=== PATIENT | female | born 1940 | race Caucasian/White ===

== ENCOUNTER 2018-03-06 14:47 | Inpatient (IN) | payer OTHER, MEDICARE ==
[~2018-03-06] VITALS: Ht 157.5 cm; Wt 61.9 kg
[~2018-03-06 14:47] MED LIST: ALLO100T PO; AMLO5TAB3 PO; ASPI81TA28 PO; ATEN-175 PO; ATOR-24 PO; CEPH500C2 PO; DSP25 PO; HYDR25TA4 PO; LEVO112T4 PO; LISI10TA PO; PANT40TA PO; REPA2TAB12 PO; ROPI1TAB PO; SERT50TA PO; SITA25TA PO; SULF800T23 PO
[2018-03-06 17:44] VITALS: O2SAT 95; BMI 24.8
[2018-03-06 19:55] VITALS: BP 171/77; PULSE 100; TEMP 36.8; O2SAT 97
--- NOTE | 2018-03-06 21:36 | History and Physical ---
History & Physical Date & Time of Service: Mar 06, 2018 at 20:54 Chief Complaint: Acute Renal Failure, Osteomyelitis Primary Care Physician: Anne Stevenson D.O. History of Present Illness Source: patient The patient is a 77 year old female with a past medical history of HTN, OA, CAD (history of CABG in ) who is being transferred from [facility] after a renal biopsy performed on 03/05. The patient was recently an inpatient at [facility] from 02/19-03/04 with multiple illnesses including Acute Renal Failure, Osteomyelitis of the Right 2nd Phalynx, Pneumonia, and Atrial Fibrillation. The patient was initially seen at [facility] on 02/15 for the osteomyelitis that grew cultures positive for MRSA, and while admitted at [facility] developed the pneumonia and renal failure requiring transfer to [facility]. The patient appears to have been successfully treated for the osteomyelitis as there was no appearance of infection on the most recent MRI at [facility] on 02/23. As per the last Orthopaedic hospital note the patient was provided with the option of suppressive antibiotic therapy or amputation and the patient was leaning towards amputating the digit. Prior to her recent renal injury the patient was known to have CKD with a baseline creatinine of 1.1-1.8, and developed apparent HAO in the setting of her infection at the hospital. There was concern that her renal injury was acute tubular necrosis in the setting of antibiotic use including Vancomycin and Bactrim. The recommendation for Nephrology was that the patient have Dialysis 3x weekly, and last received Dialysis at [facility] on 03/05. The patient was transferred to [facility] for a renal biopsy, and while there the procedure was complicated by a perinephric hematoma. The patient was found to be hemodynamically stable 24 hours after the procedure and transferred to [facility]. The patient also developed new onset Afib and has been treated with Amiodarone and Metoprolol, and as per discharge from [facility] they recommend holding anticoagulation for 1 week due to the perinephric hematoma and until H/H remains stable. At this time the patient denies any acute complaints including fever, chills, sweats, shortness of breath, back pain, finger pain, or any other acute complaints Past Medical/Surgical History Medical Problems: (1) HAO (acute kidney injury) (2) Cellulitis of hand (3) Multifocal pneumonia (4) Osteomyelitis of finger of right hand Social History Smoking Status: Former Smoker Drug Use: none Marital Status: Housing status: lives with significant other Occupational Status: disabled Allergies Coded Allergies: No Known Allergies (Unverified , 02/20/18) Home Medications Scheduled Allopurinol (Zyloprim), 1 TAB PO DAILY Amlodipine (Norvasc), 5 MG PO DAILY Aspirin (Aspirin Ec), 81 MG PO DAILY Atenolol (Tenormin), 100 MG PO DAILY Atorvastatin (Lipitor), 40 MG PO DAILY Cephalexin Monohydrate (Keflex), 500 MG PO QID Desipramine HCl (Desipramine HCl), PO HS Hydrochlorothiazide (Hctz), 1 TAB PO DAILY Levothyroxine Sodium (Levothyroxine Sodium), 1 TAB PO DAILY Lisinopril (Prinivil), 10 MG PO DAILY Pantoprazole (Protonix), 40 MG PO BID Repaglinide (Prandin), 2 MG PO AC Ropinirole (Requip), 1 MG PO HS Sertraline (Zoloft), 50 MG PO DAILY Sitagliptin (Januvia), 25 MG PO DAILY Sulfa/Trimethoprim (Bactrim Ds 800MG/160MG), 1 TAB PO BID Review of Systems Constitutional: No fever, No chills, No sweats, No weight loss, No fatigue Respiratory: No cough, No shortness of breath Cardiovascular: No chest pain, No palpitations Abdomen: No pain, No nausea, No vomiting, No diarrhea, No constipation Neurologic: + numbness/tingling, No memory loss Physical Exam Vital Signs Date Time Temp Pulse Resp B/P (MAP) Pulse Ox O2 Delivery O2 Flow Rate FiO2 03/06/18 19:55 36.8 100 16 171/77 (108) 97 Room Air 03/06/18 17:44 95 Room Air General Appearance: WD/WN, no apparent distress Head: normocephalic, atraumatic Eyes: normal inspection, sclerae normal Neck: supple, no carotid bruits, trachea midline Respiratory/Chest: chest non-tender, lungs clear, normal breath sounds, + pertinent finding (Permcath placement C/D/I) Cardiovascular: no gallop, no murmur, + irregularly irregular Abdomen/GI: normal bowel sounds, non tender, soft Extremities/Musculoskelatal: no calf tenderness, no pedal edema, + pertinent finding (Right 2nd Phalynx - no visible discharge, bone visible at region of PIP joint, surrounding necrotic and erythematous discharge, no bleeding, nontender to palption, ) Neurologic/Psych: alert, normal reflexes, oriented x 3 Impression Assessment and Plan The patient is a 77 year old female with a past medical history of HTN, OA, CAD (history of CABG in ) who is being transferred from [facility] after a renal biopsy performed on 03/05 Acute Renal Failure - Possibly in the setting of ATN 2/2 IV Antibiotics or Staph related autoimmune kidney injury - Kidney Biopsy pending from [facility] - Consult Nephrology - Hemodialysis 3x/ week --> Last HD on 02/03 at [facility] - Creatinine 2.86 (Baseline 1.1-1.8) - Continue Prednisone 40mg PO Daily - Continue Cholecalciferol 1000 Int Units daily - Daily CBC, BMP - Admit Telemetry Perinephric Hematoma - Daily CBC - Hold Anticoagulation at this time Atrial Fibrillation - Continue Amiodarone 200mg PO Daily and Metoprolol XL 25mg PO Daily - Hold Anticoagulation at this time due to hematoma - EKG - Admit telemetry Right 2nd Finger Osteomyelitis - Orthopaedic Surgery Consult - Aquacel dressing - NPO after midnight anticipating possible amputation tomorrow - As per ID from previous admission Keflex x 14 days --> MSSA + Wound culture, Blood Cultures Negative DM - Sliding Scale Insulin with BSG AC and HS - Continue home Januvia and Prandin - Diabetic Diet HTN - Multiple conflicting medications between Cardiology notes, Discharge Summary, and Note from [facility] Discharged patient on Amlodipine 10mg PO Daily and Toprol Xl 25mg - Will continue medications from transfer for time being Parkinson's Disease - Continue home Ropinirole Hypothyroidism - Continue home Synthroid 112 mcg HLD - Continue home Atorvastatin 40mg Depression - Continue home Sertraline DVT - SCDs Code Status - Full Resuscitation Resident Physician Supervision Note: I was present with Dr. Cat during the history and exam. I discussed the case with the resident and agree with the findings and plan as documented in the note. Any exceptions or clarifications are listed here: 77 y/o F Hx HTN, OA, Parkinson, hypothyroidism, CAD, osteomyelitis, acute renal failure leading to dialysis during a recent hospitalization, PAF, recent PNM. The patient's sojourn began at [facility] on 02/15 for the osteomyelitis that grew cultures positive for MRSA. While admitted at [facility] she developed pneumonia and renal failure requiring transfer to [facility]. She was subsequently transferred to [facility] and stablized. Today she returns to [facility] for comletion of treatment and possible partial amputation of her R 2nd digit owing to osteomyelitis. It is noted that she suffered a perinephric hemorrhage after a renal biopsy at [facility]. Her Hb is low on arrival without evidence of active bleeding. OE Lethargic, elderly F - AAO S1,2 R CTA NT, ND Dialysis cath in chest wall without induration Minimal edema P: We will transfuse this pt pending ortho eval as she may need a procedure and has exhibited a precipitous decline in her Hb over the past week She requires dialysis TIW and nephrology will be contacted Cont Norvasc and Toprol Cont Synthroid Cont Lipitor Documented By: Loki Villalobos Advanced Directives Existing Living Will: Yes Existing Power of Front Desk Agent: Yes Resuscitation Status Full Code VTE Prophylaxis Will order VTE Prophylaxis: Yes Reason for no VTE drug order: Contraindicated Resident Tracking Resident Involvement: Resident Care Provided Care Provided: Adult Hospital Medicine
[2018-03-06 22:21] LABS: HEMATOCRIT 23.1 % (37-47); HEMOGLOBIN 7.6 g/dL (12.0-16.0); MEAN CELL VOLUME 93.1 fL (80-100); MEAN CORPUSCULAR HEMOGLOBIN 30.6 pg (25-34); MEAN CORPUSCULAR HGB CONC 32.9 g/dl (32-36); MEAN PLATELET VOLUME 10.5 fL (7.4-10.4); PLATELET COUNT 311 K/uL (130-400); RED CELL DISTRIBUTION WIDTH CV 21.1 % (11.5-14.5); RED CELL DISTRIBUTION WIDTH SD 69.3 fL (36.4-46.3); WHITE BLOOD COUNT 13.56 K/uL (4.8-10.8)
[2018-03-06 22:22] LABS: INR 1.2 (0.9-1.1)
[2018-03-06 22:29] LABS: CALCIUM 7.8 mg/dl (8.5-10.1); CREATININE 2.86 mg/dl (0.60-1.20); POTASSIUM 4.5 mmol/L (3.5-5.1)
[2018-03-06] MEDS ORDERED: GLUCAGON FOR INJ 1 MG VIAL IM PRN (22:30)
[2018-03-06] MEDS ORDERED: CARBOHYDRATES FOR HYPOGLYCEMIA PO PRN (22:30)
[2018-03-06] MEDS ORDERED: GLUCOSE 10 TABS/TUBE PO PRN (22:30)
[2018-03-06] MEDS ORDERED: GLUCOSE 40% GEL 15 GM TUBE PO PRN (22:30)
[2018-03-06] MEDS: INSULIN ASPART 100 UNITS/ML 3 ML PEN SC SCH (22:33)
[2018-03-06 22:42] LABS: IG# 0.03 K/uL (0.00-0.02); LYMPH % 6.1 %; LYMPH ABS # 0.83 K/uL (1.2-3.4); MONO % 4.1 %; MONO ABS # 0.55 K/uL (0.11-0.59); NEUT % 89.6 %; NEUT ABS # 12.15 K/uL (1.4-6.5)
[2018-03-06] MEDS: CEPHALEXIN MONOHYDRATE 500 MG CAP PO SCH (23:16)
[2018-03-06] MEDS: ROPINIROLE HCL 1 MG TAB PO SCH (23:17)
[2018-03-06 23:50] VITALS: BP 167/75; PULSE 97; TEMP 36.7; O2SAT 97
[2018-03-07] VITALS (28 sets, daily range): BP systolic 102–203; BP diastolic 46–83; PULSE 76–100; TEMP 36.5–37; O2SAT 93–100; Ht 157.5 cm; Wt 61.9 kg
[2018-03-07 04:22] LABS: HEMATOCRIT 24.6 % (37-47); HEMOGLOBIN 8.1 g/dL (12.0-16.0)
[2018-03-07] MEDS: LEVOTHYROXINE 112 MCG TAB PO SCH (05:38)
[2018-03-07] MEDS: REPAGLINIDE 1 MG TAB PO SCH ×4 (05:38→16:16)
[2018-03-07] MEDS: DEXTROSE 50% 50 ML SYR IV PRN ×2 (06:08→12:38)
[2018-03-07] MEDS: INSULIN ASPART 100 UNITS/ML 3 ML PEN SC SCH ×4 (06:13→21:24)
[2018-03-07] MEDS: PANTOprazole SOD 40 MG TAB PO SCH ×2 (07:45→21:22)
[2018-03-07] MEDS: ATORVASTATIN 40 MG TAB PO SCH (07:45)
[2018-03-07] MEDS: SITAGLIPTIN 25 MG TAB PO SCH (07:46)
[2018-03-07] MEDS: AMIODARONE 200 MG TAB PO SCH (07:46)
[2018-03-07] MEDS: CHOLECALCIFEROL 1000 INTER.UNIT TAB PO SCH (07:46)
[2018-03-07] MEDS: SERTRALINE HCL 50 MG TAB PO SCH (07:46)
[2018-03-07] MEDS: AMLODIPINE BESYLATE 5 MG TAB PO SCH (07:47)
[2018-03-07] MEDS: CEPHALEXIN MONOHYDRATE 500 MG CAP PO SCH ×2 (07:48→13:00)
[2018-03-07 08:17] LABS: HEMATOCRIT 30.4 % (37-47); HEMOGLOBIN 9.9 g/dL (12.0-16.0)
--- NOTE | 2018-03-07 08:47 | Clinical Documentation Query ---
CLINICAL DOCUMENTATION QUERY Dr. BRIAN, In your clinical opinion is this patient being managed for: ( ) Acute blood loss anemia ( x ) Not Agree ( ) Other explanation of clinical findings (No explanation is considered a No Response) ( ) Unable to determine ( ) Need to Discuss (Phone CDS or qliq) (No discussion is considered a No Response) The medical record reflects the following clinical findings, treatment, and risk factors. Clinical Indicators: 77 yo female returning from [facility] [place] a renal biopsy. Arrived with a low Hgb of 7.6. Reportedly had Perinephric Hematoma post biopsy at [facility]. Treatment: hold anticoagulation, daily CBC, transfuse 2 U PRBC Risk Factors: perinephric hematoma Please clarify and document your clinical opinion in the progress notes and discharge summary. Terms such as "probable", "suspected", "likely", "questionable", "possible", or "still to be ruled out" are acceptable. IF IN AGREEMENT, YOU MUST DOCUMENT ABOVE DIAGNOSTIC STATEMENT IN DAILY PROGRESS NOTES AND DISCHARGE SUMMARY. This document is not part of the patient's record. Thank You, Coco Aquino RN [phone]
--- NOTE | 2018-03-07 08:47 | Orthopedic Progress Note ---
Orthopedic Progress Note Date of Service Mar 07, 2018. Subjective Additional Notes: 77 y/o female with open wound, exposed bone involving right index finger DIP joint. No pain presently but does have pain at times. She was transferred back here to [facility] from [place] yesterday after renal biopsy procedure. She has also developed a. fib, and has received blood transfusion. Objective Date Time Temp Pulse Resp B/P (MAP) Pulse Ox O2 Delivery O2 Flow Rate FiO2 03/07/18 07:44 78 173/68 (103) 100 Room Air 03/07/18 06:40 37.0 83 18 190/76 99 03/07/18 05:40 37.0 86 18 186/78 98 03/07/18 05:13 36.8 91 18 166/76 (106) 98 Room Air 03/07/18 05:10 83 16 182/71 99 03/07/18 04:40 84 18 182/71 99 03/07/18 04:25 36.7 81 20 177/83 99 03/07/18 04:00 Room Air 03/07/18 00:00 Room Air 03/06/18 23:50 36.7 97 18 167/75 (105) 97 Room Air 03/06/18 19:55 36.8 100 16 171/77 (108) 97 Room Air 03/06/18 17:44 95 Room Air Laboratory Results 24 Hours: Test 03/06/18 21:47 03/07/18 04:08 03/07/18 08:00 White Blood Count 13.56 K/uL Red Blood Count 2.48 M/uL Hemoglobin 7.6 g/dL 8.1 g/dL 9.9 g/dL Hematocrit 23.1 % 24.6 % 30.4 % Mean Corpuscular Volume 93.1 fL Mean Corpuscular Hemoglobin 30.6 pg Mean Corpuscular Hemoglobin Concent 32.9 g/dl Platelet Count 311 K/uL Mean Platelet Volume 10.5 fL Neutrophils (%) (Auto) 89.6 % Lymphocytes (%) (Auto) 6.1 % Monocytes (%) (Auto) 4.1 % Eosinophils (%) (Auto) 0.0 % Basophils (%) (Auto) 0.0 % Neutrophils # (Auto) 12.15 K/uL Lymphocytes # (Auto) 0.83 K/uL Monocytes # (Auto) 0.55 K/uL Eosinophils # (Auto) 0.00 K/uL Basophils # (Auto) 0.00 K/uL Prothromb Time International Ratio 1.2 Prothrombin Time 12.3 SECONDS Additional Notes: She's alert, oriented. NAD. Right index finger open wound with exposed bone, necrosis. No active drainage.No redness or swelling extending up the the finger proximally. Assessment & Plan Assessment: Right index finger open wound, infection, with underlying advanced djd of DIP joint. Plan: She is npo. We will plan on taking her to the operating room today for amputation involving the right index finger. Procedure was explained to the patient and consent obtained.
[2018-03-07] MEDS ORDERED: AMLODIPINE BESYLATE 5 MG TAB PO SCH (09:00)
--- NOTE | 2018-03-07 10:12 | Nephrology Consultation ---
Nephrology Consultation Date & Providers Date of Consultation: Mar 07, 2018. Primary Care Provider: Anne Stevenson D.O. Referring Provider: Reason for Consultation HAO History of Present Illness Mrs. Adelita Vila is a 77 year-old female ho was recently transferred from [facility] to [facility] for a renal biopsy. The procedure was complicated by a perinephric hematoma. After 24 hours of observation, the patient was found to be stable and discharged to return to [facility] where amputation of the finger will be coordinated by orthopedics. Biopsy results are pending. The patient was initially admitted to [facility] as a transfer from [facility] on February 19. The patient's medical history is significant for HTN, OA, ASCVD ( CABG '00) and CKD w/ baseline creatinine 1.1 - 1.8. She presented to [facility] in January 2018 with soft tissue infection / osteomyelitis of the DIP joint R index finger. Cultures from the joint aspirate grew MSSA. Blood cultures negative. Initial treatment included Bactrim and Keflex. The patient was admitted and started on vancomycin and cefepime. HAO developed in setting of infection. Renal ultrasound documented symmetric bilateral cortical atrophy ( 8cm kidneys) but no obstruction. Renal duplex did not demonstrate significant renovascular disease. The patient developed new multifocal airspace disease/ pneumonia. She was transferred to [facility] with worsening kidney function and respiratory status with need for dialysis. Tunneled dialysis catheter was placed and patient was started on HD on February 21. She has been tolerating dialysis well. Urine microscopy revealed hematuria and pyuria. ESR >90. Serologic testing is notable for +MER, low C3 and equivocal serum immunofixation and UPEP. Hospital course was complicated by new atrial fibrillation. The patient has been converted to NSR with amiodarone. Anticoagulation held due to perinephric hematoma. Past Medical/Surgical History Medical: CKD III Hypertension Atrial fibrillation Coronary artery disease Osteoarthritis Surgical: TDC (02/21/18) Percutaneous kidney biopsy (03/04/18) Debridement of finger and aspiration of joint, January 2018 Allergies Coded Allergies: No Known Allergies (Unverified , 02/20/18) Inpatient Medications Current Inpatient Medications Medications (Trade) Dose Ordered Sig/Frank Route Start Time Stop Time Status Last Admin Dose Admin Acetaminophen (Tylenol Tab) 650 mg Q4H PRN PO 03/06/18 21:45 04/05/18 21:44 Atorvastatin Calcium (Lipitor Tab) 40 mg DAILY PO 03/07/18 09:00 04/06/18 08:59 03/07/18 07:45 40 MG Levothyroxine Sodium (Synthroid Tab) 112 mcg DAILYBB PO 03/07/18 06:00 04/06/18 05:59 03/07/18 05:38 112 MCG Pantoprazole Sodium (Protonix Tab) 40 mg BID PO 03/07/18 09:00 04/06/18 08:59 03/07/18 07:45 40 MG Repaglinide (Prandin Tab) 2 mg AC PO 03/07/18 07:00 04/06/18 06:59 03/07/18 05:38 2 MG Ropinirole HCl (Requip Tab) 1 mg HS PO 03/06/18 23:00 04/05/18 22:59 03/06/18 23:17 1 MG Sertraline HCl (Zoloft Tab) 50 mg DAILY PO 03/07/18 09:00 04/06/18 08:59 03/07/18 07:46 50 MG Sitagliptin Phosphate (Januvia Tab) 25 mg DAILY PO 03/07/18 09:00 04/06/18 08:59 03/07/18 07:46 25 MG Amiodarone HCl (Cordarone Tab) 200 mg QAM PO 03/07/18 09:00 04/06/18 08:59 03/07/18 07:46 200 MG Cephalexin Monohydrate (Keflex Cap) 500 mg QID PO 03/06/18 23:00 04/17/18 22:59 03/07/18 07:48 500 MG Amlodipine Besylate (Norvasc Tab) 10 mg DAILY PO 03/07/18 09:00 04/06/18 08:59 03/07/18 07:47 10 MG Prednisone (PredniSONE TAB) 40 mg DAILY PO 03/07/18 09:00 04/06/18 08:59 03/07/18 07:47 40 MG Cholecalciferol (Vitamin D Tab) 1,000 inter.unit QAM PO 03/07/18 09:00 04/06/18 08:59 03/07/18 07:46 1,000 INTER.UNIT Insulin Aspart (novoLOG ASPART) SLIDING SCALE G... ACHS IN 03/06/18 23:00 04/05/18 22:59 Glucose (Glucose 40% Gel) 15-30 GRAMS 15 GRAMS... UD PRN PO 03/06/18 22:30 04/05/18 22:29 Glucose (Glucose Chew Tab) 4-8 Tablets 4 Tabl... UD PRN PO 03/06/18 22:30 04/05/18 22:29 Dextrose (Dextrose 50% 50ML Syringe) 25-50ML 25ML FOR ... UD PRN IV 03/06/18 22:30 04/05/18 22:29 03/07/18 06:08 25 ML Glucagon (Glucagon Inj) 1 mg UD PRN IM 03/06/18 22:30 04/05/18 22:29 Carbohydrates (Carbohydrates For Hypoglycemia) 15-30 GRAMS 15 grams if BSG 54-69... UD PRN PO 03/06/18 22:30 04/05/18 22:29 Social History Smoking Status: Former Smoker Drug Use: none Marital Status: Housing Status: lives with significant other Occupation: disabled Review of Systems A complete review of systems was performed. Pertinent positives are noted above. All other systems are negative. Physical Exam Date Time Temp Pulse Resp B/P (MAP) Pulse Ox O2 Delivery O2 Flow Rate FiO2 03/07/18 08:00 Room Air 03/07/18 07:44 78 173/68 (103) 100 Room Air 03/07/18 06:40 37.0 83 18 190/76 99 03/07/18 05:40 37.0 86 18 186/78 98 03/07/18 05:13 36.8 91 18 166/76 (106) 98 Room Air 03/07/18 05:10 83 16 182/71 99 03/07/18 04:40 84 18 182/71 99 03/07/18 04:25 36.7 81 20 177/83 99 03/07/18 04:00 Room Air 03/07/18 00:00 Room Air 03/06/18 23:50 36.7 97 18 167/75 (105) 97 Room Air 03/06/18 19:55 36.8 100 16 171/77 (108) 97 Room Air 03/06/18 17:44 95 Room Air General Appearance: no apparent distress, + pertinent finding (elerly, frail) Head: normocephalic, atraumatic Eyes: normal inspection, sclerae normal ENT: normal ENT inspection, pharynx normal Neck: supple, no JVD Respiratory/Chest: no respiratory distress, no accessory muscle use, + rales Cardiovascular: no murmur, + irregularly irregular Abdomen/GI: non tender, soft Extremities/Musculoskelatal: normal inspection, no pedal edema Neurologic/Psych: alert, normal mood/affect Laboratory Results Last 24 Hours Test 03/06/18 20:26 03/06/18 21:47 03/07/18 04:08 03/07/18 06:02 Bedside Glucose 170 mg/dl 68 mg/dl White Blood Count 13.56 K/uL Red Blood Count 2.48 M/uL Hemoglobin 7.6 g/dL 8.1 g/dL Hematocrit 23.1 % 24.6 % Mean Corpuscular Volume 93.1 fL Mean Corpuscular Hemoglobin 30.6 pg Mean Corpuscular Hemoglobin Concent 32.9 g/dl Platelet Count 311 K/uL Mean Platelet Volume 10.5 fL Neutrophils (%) (Auto) 89.6 % Lymphocytes (%) (Auto) 6.1 % Monocytes (%) (Auto) 4.1 % Eosinophils (%) (Auto) 0.0 % Basophils (%) (Auto) 0.0 % Neutrophils # (Auto) 12.15 K/uL Lymphocytes # (Auto) 0.83 K/uL Monocytes # (Auto) 0.55 K/uL Eosinophils # (Auto) 0.00 K/uL Basophils # (Auto) 0.00 K/uL RDW Standard Deviation 69.3 fL RDW Coefficient of Variation 21.1 % Immature Granulocyte % (Auto) 0.2 % Immature Granulocyte # (Auto) 0.03 K/uL Anisocytosis PRESENT Prothrombin Time 12.3 SECONDS Prothromb Time International Ratio 1.2 Sodium Level 132 mmol/L Potassium Level 4.5 mmol/L Chloride Level 97 mmol/L Carbon Dioxide Level 28 mmol/L Anion Gap 7.0 mmol/L Blood Urea Nitrogen 33 mg/dl Creatinine 2.86 mg/dl Est Creatinine Clear Calc Drug Dose 14.7 ml/min Estimated GFR () 17.9 Estimated GFR (Non- 15.5 BUN/Creatinine Ratio 11.4 Random Glucose 150 mg/dl Calcium Level 7.8 mg/dl Test 03/07/18 06:29 03/07/18 08:00 Bedside Glucose 142 mg/dl Hemoglobin 9.9 g/dL Hematocrit 30.4 % Impression (1) HAO (acute kidney injury) (2) Perinephric hematoma (3) Osteomyelitis of finger of right hand (4) Hypertension (5) Atrial fibrillation Ms. Vila is a 77-year-old female with HTN, OA, ASCVD (CABG '00) and CKD w/ baseline creatinine 1.1 - 1.8. She presented to [facility] with soft tissue infection and possible osteomyelitis of the DIP joint R index finger. Cultures from the joint aspirate grew MSSA. Blood cultures negative. Initial treatment included Bactrim and Keflex. The patient was admitted and started on vancomycin and cefepime. HAO developed in setting of infection. Renal ultrasound documented symmetric bilateral cortical atrophy (8cm kidneys) but no obstruction. Renal duplex did not demonstrate significant renovascular disease. The patient developed new multifocal airspace disease/pneumonia. She was transferred to [facility] with worsening kidney function and respiratory status with need for dialysis. Tunneled dialysis catheter was placed and patient was started on HD on February 21. Urine microscopy revealed hematuria and pyuria. ESR significantly elevated. Serologic testing is notable for +MER, low C3 and equivocal serum immunofixation and UPEP. Clinical presentation is suggestive of ATN complicated by antibiotics including vancomycin and Bactrim. However, acute GN remains a significant concern. Clinical presentation may be consistent with staph associated immune complex mediated GN or other C3 glomerulopathy. Blood cultures have been negative and TTE did not demonstrate vegetations to suggest IE. ANCA is negative. AIN also possible notable given multiple recent antibiotics including Bactrim and Keflex. Urine eosinophil testing was negative. Hospital course was complicated by new atrial fibrillation. The patient has been converted to NSR with amiodarone. She is on a heparin gtt. At this time, I have discussed more than once potential benefits of coordinating a kidney biopsy to help direct plan of care. Adelita would like to move forward to better understand the sudden onset of renal failure and prognosis moving forward. Recommendations HAO: -- BP and volume status are acceptable -- Hemodialysis will be coordinated based on OR schedule -- Electrolytes are appropriate -- Will continue to monitor to plan next treatment, patient continues to require at least 3 x weekly dialysis -- Social work assistance to arrange outpatient HD at [facility] under my care -- Continue prednisone, 40 mg daily -- Coordination kidney biopsy results pending -- Repeat metabolic profile tomorrow AM Perinephric hematoma: -- Anticoagulation held for 1 week HYPONATREMIA: -- 1500 ml daily fluid restriction ANEMIA: -- PRBC transfusion provided overnight with appropriate response -- EPO will be provided with HD HTN: -- Continue Amlodipine -- Increase metoprolol tartrate to 50 mg twice daily -- Avoid YONATAN/ARB option given HAO Osteomyelitis: -- Amputation to be scheduled
--- NOTE | 2018-03-07 11:10 | History & Physical Bridge Note ---
H&P Re-Evaluation Bridge Note: I have examined the patient, reviewed the History & Physical and in the interval since the performance of the History & Physical I have noted the following changes of clinical significance: No changes noted
--- NOTE | 2018-03-07 11:24 | Progress Note ---
Progress Note Date of Service Mar 07, 2018. Progress Note ID Consult Dictated #[id number] A/P: 1. Right 2nd finger osteo - MSSA -For amputation today, this likely will be curative, however, if margins not clear would suggest additional 7 days po keflex -Continue keflex for now, suggest renal dosing as previous admission -Thank you
[2018-03-07] MEDS ORDERED: ATROPINE SULFATE 0.1 MG/ML 5ML SYR IV PRN (12:00)
[2018-03-07] MEDS ORDERED: HYDROmorphone INJ 1 MG/ML SYR IV PRN (12:00)
[2018-03-07] MEDS ORDERED: ONDANSETRON INJ 2 MG/ML 2 ML VIAL IV PRN (12:00)
[2018-03-07] MEDS ORDERED: LABETALOL HCL IV 5 MG/ML 20ML IV PRN (12:00)
[2018-03-07] MEDS ORDERED: FENTANYL CITRATE INJ 50 MCG/1 ML 2 ML VIAL IV PRN (12:00)
[2018-03-07] MEDS ORDERED: EpHEDrine SULFATE INJ 50 MG/ML AMP IV PRN (12:00)
[2018-03-07] MEDS ORDERED: PHENYLEPHRINE 100MCG/ML 5ML SYR IV PRN (12:00)
[2018-03-07 12:01] LABS: HEMATOCRIT 29.7 % (37-47); HEMOGLOBIN 9.9 g/dL (12.0-16.0)
[2018-03-07] MEDS ORDERED: PROPOFOL IV EMULSION 10 MG/ML 20 ML VIAL ONE (12:17)
[2018-03-07] MEDS ORDERED: LIDOCAINE HCL 2% 2 ML VIAL (20MG/ML) ONE (12:17)
[2018-03-07] MEDS ORDERED: MIDAZOLAM HCL 1 MG/ML 2ML VIAL ONE (12:18)
[2018-03-07] MEDS ORDERED: FENTANYL CITRATE INJ 50 MCG/1 ML 2 ML VIAL ONE (12:18)
[2018-03-07] MEDS ORDERED: DEXTROSE 50% 50 ML SYR IV ONE (12:30)
[2018-03-07] MEDS ORDERED: LIDOCAINE HCL 1% 20 ML VIAL ONE (12:53)
[2018-03-07] MEDS ORDERED: BUPIVACAINE 0.25% 30 ML VIAL ONE (12:54)
--- NOTE | 2018-03-07 13:55 | INFECT. DISEASE CONSULTATION ---
DATE OF CONSULTATION: 03/07/2018 HISTORY OF PRESENT ILLNESS: This is a 77-year-old female who was recently admitted to the hospital secondary to worsening finger infection and pneumonia. She does have a history of osteomyelitis of the right second digit; however, an MRI done here did not have any evidence for this. She apparently was on antibiotics of vancomycin and Bactrim prior to admission here and developed acute kidney injury. For this reason, she was transferred to [facility] on the or 04 of March to undergo a renal biopsy. This was performed; however, she developed a complication of perinephric hematoma. She was transferred back to [facility] yesterday for ongoing treatment of her finger. She was evaluated by ortho on her last admission and again on this admission and she is scheduled for amputation of her finger later today. She was on renally dosed Keflex on her last admission; however, on this admission she was placed on full dose Keflex 4 times daily. Her creatinine is 2.8. She does have a leukocytosis of 13.5. She did have bleeding requiring blood transfusion prior to admission. She has been afebrile since admission here. She did have blood cultures on her last admission dated 02/20/2018 and those are negative and final. She has no micro from this admission to review. On my examination, she is out of bed to chair. She complains of minimal pain in the finger, but states it is unchanged. She denies any active bleeding or drainage from the finger. She states this has overall been dry, but has been sore. She denies any fevers or chills. She currently denies any chest pain, cough, shortness of breath, nausea, vomiting, diarrhea or abdominal pain. She denies any flank pain. Her remaining review of systems is reviewed and unremarkable. PAST MEDICAL HISTORY: Acute kidney injury, osteomyelitis of the finger, multifocal pneumonia. PAST SURGICAL HISTORY: Unremarkable. FAMILY HISTORY: Noncontributory. ALLERGIES: She has no known drug allergies. SOCIAL HISTORY: Significant for history of tobacco use. She denies any alcohol or drug use. CURRENT MEDICATIONS: Lipitor, Protonix, Zoloft, Januvia, amiodarone, Norvasc, prednisone, vitamin D, Prandin, Synthroid, Requip, Keflex, insulin, acetaminophen. PHYSICAL EXAMINATION: VITAL SIGNS: She is afebrile, pulse 78, respiratory rate 18, blood pressure 173/68, oxygen saturation is 100% on room air. GENERAL: She is awake, alert and oriented x3. She is in no acute distress. HEENT: Mucous membranes are moist. Extraocular muscles are intact. HEART: Regular. LUNGS: Clear. ABDOMEN: Soft, nontender, nondistended. There is no edema. Examination of the right hand reveals dry ulcerations over the distal joint on the 2nd right digit. There is no surrounding warmth, erythema or tenderness. There is no active bleeding or drainage. LABORATORY STUDIES: CBC on the white blood cell count 13.5, hemoglobin 7.6, improved to 9.9 this morning, platelets 311. Chemistry panel: Sodium 132, potassium 4.5, chloride 97, bicarbonate 28, BUN 33, creatinine 2.8, glucose 142. Urinalysis negative. Blood cultures from the are negative and final. There is no micro from this admission. There is no imaging to review. ASSESSMENT AND PLAN: Osteomyelitis of the right finger with a history of MSSA. She is for amputation today and this will likely be curative; however, if margins are not clean I would recommend an additional 7 days of Keflex however, this should be renally dosed as her creatinine is elevated. Thank you for this consultation.
[2018-03-07] MEDS ORDERED: LABETALOL HCL IV 5 MG/ML 20ML ONE (14:01)
[2018-03-07] MEDS ORDERED: CEFAZOLIN SOD 1 GM VIAL ONE (14:01)
--- NOTE | 2018-03-07 14:30 | [facility] Post Operative Brief Note ---
Immediate Operative Summary Operative Date Mar 07, 2018. Pre-Operative Diagnosis Necrosis Right Index Finger Post-Operative Diagnosis Necrosis Right Index Finger Procedure(s) Performed Right Index Finger Amputation Surgeon Dr. Cox Locomotive Oiler Surgeon(s) MERLIN Robles Estimated Blood Loss 10 ml Findings Consistent with Post-Op Diagnosis Specimens A. Right Index Finger Amputation Drains None Anesthesia Type MAC Complication(s) none Disposition Accompanied Pt To Recover: no Disposition: Recovery Room / PACU Overlapping Procedure I was present for: the critical portions of procedure. I was immediately available: during the entire case
--- NOTE | 2018-03-07 14:58 | Anesthesiology Progress Note ---
Anesthesia Post Op Note Date & Time Mar 07, 2018 at 14:57 Vital Signs Pain Intensity: 0 Vital Signs Past 12 Hours Date Time Temp Pulse Resp B/P (MAP) Pulse Ox O2 Delivery O2 Flow Rate FiO2 03/07/18 14:53 36.4 78 17 141/70 (96) 99 Room Air Oxymask 03/07/18 14:52 72 32 100 03/07/18 14:52 74 32 03/07/18 14:51 141/70 03/07/18 14:48 76 18 03/07/18 14:48 73 18 100 03/07/18 14:45 161/68 03/07/18 14:43 72 18 03/07/18 14:43 78 18 166/78 100 03/07/18 14:40 169/84 03/07/18 14:38 74 20 100 03/07/18 14:38 79 20 03/07/18 14:36 158/75 03/07/18 14:33 18 03/07/18 14:33 36.3 75 16 133/67 (80) 97 Oxymask 10 03/07/18 14:33 79 18 133/67 03/07/18 08:00 Room Air 03/07/18 07:44 78 173/68 (103) 100 Room Air 03/07/18 06:40 37.0 83 18 190/76 99 03/07/18 05:40 37.0 86 18 186/78 98 03/07/18 05:13 36.8 91 18 166/76 (106) 98 Room Air 03/07/18 05:10 83 16 182/71 99 03/07/18 04:40 84 18 182/71 99 03/07/18 04:25 36.7 81 20 177/83 99 03/07/18 04:00 Room Air Notes Mental Status: alert / awake / arousable, participated in evaluation Pt Amnestic to Procedure: Yes Nausea / Vomiting: adequately controlled Pain: adequately controlled Airway Patency, RR, SpO2: stable & adequate BP & HR: stable & adequate Hydration State: stable & adequate Anesthetic Complications: no major complications apparent
[2018-03-07] MEDS ORDERED: NURSING VERBAL MED ORDER ONE (16:30)
--- NOTE | 2018-03-07 16:38 | OPERATIVE REPORT ---
DATE OF OPERATION: 03/07/2018 SURGEON: Tre Cox MD BILINGUAL RESEARCH INTERVIEWER: MERLIN Edwards PREOPERATIVE DIAGNOSES: 1. Right index finger necrosis. 2. 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 POSTOPERATIVE DIAGNOSES: 1. Right index finger necrosis. 2. 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 PROCEDURE PERFORMED: Right index finger amputation. COMPLICATIONS: None. ESTIMATED BLOOD LOSS: 10 mL. TOURNIQUET TIME: 11 minutes at 250 mmHg. ANESTHESIA: Local with IV sedation. OPERATIVE INDICATIONS: The patient is a 77-year-old female with multiple medical comorbidities who was admitted with an infected finger with some underlying arthritis mutilans as well as a pneumonia. She was treated and developed progressive necrosis of her index finger. She was medically optimized. She recently had a kidney biopsy at [place] several days ago and was transferred back here. She was indicated for index finger management. She had complete necrosis over the DIP joint of the finger with exposed bone. There was no way this is going to the heel and the patient indicated for amputation. OPERATIVE PROCEDURE: The patient was taken to the operating room, identified and placed on the operating table in supine position. All contacts areas were appropriately padded. IV antibiotics provided by anesthesia team. A right forearm tourniquet was placed. Some IV sedation was provided. A 12 mL of a 50:50 combination of 0.25% Marcaine and 1% lidocaine were then injected in a digital block fashion proximal to the index finger. The right hand was then scrubbed, prepped, and draped in usual sterile fashion. The right arm was elevated and exsanguinated with Esmarch and tourniquet placed at 250 mmHg. A fish mouth incision was made with the apex of the incision about 5 mm proximal in the areas of necrosis. There was not much in the way of cellulitis. Sharp dissection was carried through the subcutaneous tissue directly down to the bone. The bone was then skeletonized. I disarticulated the DIP joint and removed the necrotic portion distally. I then skeletonized the bone proximally and lessened the flaps proximally until about the mid portion of the middle phalanx and then amputated the bone through there. With good soft tissue coverage. The tissue looked good. I irrigated the wound extensively. We changed our gloves. We irrigated again. The tourniquet was let down for a tourniquet time 11 minutes. Hemostasis was assured with the use of electrocautery. The skin was then closed with a combination of 4-0 and 5-0 nylon suture in simple fashion. The hand was then cleaned and dried and a sterile dressing of Xeroform, 4 x 4's, Anabell wrap, sterile cast padding and a Coban wrap were applied. The patient was then transferred to the recovery room in stable condition. The patient tolerated the procedure well with no complication. All needle and sponge counts were correct at the end of the operation. I attest to the content of the Intraoperative Record and any orders documented therein. Any exception s are noted below.
--- NOTE | 2018-03-07 21:10 | Discharge Instructions ---
Discharge Instructions Date of Service Mar 07, 2018. Admission Reason for Admission: Acute Renal Failure, Osteomyelitis Discharge Discharge Diagnosis / Problem: Right Index Finger Amputation Discharge Goals Goal(s): Decrease discomfort, Improve function, Improve disease control, Therapeutic intervention Activity Recommendations Activity Limitations: per Instructions/Follow-up section . Instructions / Follow-Up Instructions / Follow-Up Keep dressing clean, dry, and in place until return to orthopedic clinic. for removal Schedule return to clinic appointment 2-3 weeks from the surgery date. Current Hospital Diet Patient's current hospital diet: Diabetes Type 2 Diet Discharge Diet Recommended Diet: Diabetes Type 2 Diet Procedures Procedures Performed: Right Index Finger Amputation Pending Studies Studies pending at discharge: no Laboratory Results Hemoglobin A1c Test 02/21/18 04:26 Range/Units Estimated Average Glucose 143 mg/dl Hemoglobin A1c 6.6 H 4.5-5.6 % Medical Emergencies . Who to Call and When: Medical Emergencies: If at any time you feel your situation is an emergency, please call 911 immediately. . Non-Emergent Contact Non-Emergency issues call your: Primary Care Provider . "Provider Documentation" section prepared by Tre Cox. .
[2018-03-07] MEDS: ROPINIROLE HCL 1 MG TAB PO SCH (21:22)
[2018-03-07] MEDS: CEFAZOLIN IV 1,000 MG in SYRINGE 0 ML IV SCH (21:22)
--- NOTE | 2018-03-07 22:43 | Progress Note ---
Subjective Date of Service: Mar 07, 2018. Subjective Pt evaluation today including: conversation w/ patient, physical exam Patient overnight required transfusion. Patient however reports feeling well. Patient is scheduled for surgery today. Review of Systems Constitutional: No fever Eyes: No worsening of vision ENT: No hearing loss Respiratory: No cough Cardiac: No chest pain Endo: No fatigue Skin: No rash All Other Systems: Reviewed and Negative Objective Vital Signs Date Time Temp Pulse Resp B/P (MAP) Pulse Ox O2 Delivery O2 Flow Rate FiO2 03/07/18 21:13 36.5 92 159/83 (108) 03/07/18 20:00 96 137/69 03/07/18 19:45 88 147/65 03/07/18 19:30 98 131/67 03/07/18 19:15 81 102/46 03/07/18 19:00 93 139/67 03/07/18 18:45 100 117/54 03/07/18 18:30 84 141/68 03/07/18 18:15 91 144/56 03/07/18 18:00 95 127/58 03/07/18 17:45 87 147/74 03/07/18 17:30 85 131/73 03/07/18 17:15 87 157/52 03/07/18 17:00 84 143/69 03/07/18 16:46 36.5 86 167/51 (89) 03/07/18 16:15 36.6 86 18 155/74 (101) 96 Room Air 03/07/18 16:00 36.6 76 18 165/77 (106) 96 Room Air 03/07/18 16:00 96 Room Air 03/07/18 15:53 36.6 81 18 159/77 (104) 96 Room Air 03/07/18 15:41 36.6 84 18 159/77 (104) 96 Room Air 03/07/18 15:27 36.6 83 18 203/68 (113) 96 Room Air 03/07/18 15:08 73 19 03/07/18 15:08 75 19 100 03/07/18 15:06 129/71 03/07/18 15:03 71 17 03/07/18 15:03 73 17 99 03/07/18 15:00 158/66 03/07/18 14:58 75 18 03/07/18 14:58 77 18 100 03/07/18 14:56 142/57 03/07/18 14:53 36.4 78 17 141/70 (96) 99 Room Air Oxymask 03/07/18 14:53 77 25 100 03/07/18 14:53 77 25 03/07/18 14:52 72 32 100 03/07/18 14:52 74 32 03/07/18 14:51 141/70 03/07/18 14:48 76 18 03/07/18 14:48 73 18 100 03/07/18 14:45 161/68 03/07/18 14:43 72 18 03/07/18 14:43 78 18 166/78 100 03/07/18 14:40 169/84 03/07/18 14:38 74 20 100 03/07/18 14:38 79 20 03/07/18 14:36 158/75 03/07/18 14:33 18 03/07/18 14:33 36.3 75 16 133/67 (80) 97 Oxymask 10 03/07/18 14:33 79 18 133/67 03/07/18 08:00 Room Air 03/07/18 07:44 78 173/68 (103) 100 Room Air 03/07/18 06:40 37.0 83 18 190/76 99 03/07/18 05:40 37.0 86 18 186/78 98 03/07/18 05:13 36.8 91 18 166/76 (106) 98 Room Air 03/07/18 05:10 83 16 182/71 99 03/07/18 04:40 84 18 182/71 99 03/07/18 04:25 36.7 81 20 177/83 99 03/07/18 04:00 Room Air 03/07/18 00:00 Room Air 03/06/18 23:50 36.7 97 18 167/75 (105) 97 Room Air Physical Exam Comments: General Appearance: WD/WN, no apparent distress Head: normocephalic, atraumatic Eyes: normal inspection, sclerae normal Neck: supple, no carotid bruits, trachea midline Respiratory/Chest: chest non-tender, lungs clear, normal breath sounds, + pertinent finding (Permcath placement C/D/I) Cardiovascular: no gallop, no murmur, + irregularly irregular Abdomen/GI: normal bowel sounds, non tender, soft Extremities/Musculoskelatal: no calf tenderness, no pedal edema, + pertinent finding (Right 2nd Phalynx - no visible discharge, bone visible at region of PIP joint, surrounding necrotic and erythematous discharge, no bleeding, nontender to palption, ) Neurologic/Psych: alert, normal reflexes, oriented x 3 Laboratory Results Last 24 Hours Test 03/07/18 04:08 03/07/18 06:02 03/07/18 06:29 03/07/18 08:00 Hemoglobin 8.1 g/dL 9.9 g/dL Hematocrit 24.6 % 30.4 % Bedside Glucose 68 mg/dl 142 mg/dl Test 03/07/18 11:43 03/07/18 12:11 03/07/18 12:13 03/07/18 12:54 Hemoglobin 9.9 g/dL Hematocrit 29.7 % Bedside Glucose 12 mg/dl 32 mg/dl 24 mg/dl Test 03/07/18 12:57 03/07/18 13:01 03/07/18 13:17 03/07/18 13:29 Bedside Glucose 18 mg/dl 23 mg/dl 127 mg/dl Random Glucose 191 mg/dl Test 03/07/18 14:35 03/07/18 15:29 Bedside Glucose 185 mg/dl 136 mg/dl Assessment and Plan The patient is a 77 year old female with a past medical history of HTN, OA, CAD (history of CABG in ) who is being transferred from [facility] after a renal biopsy performed on 03/05 Acute Renal Failure - Possibly in the setting of ATN 2/2 IV Antibiotics or Staph related autoimmune kidney injury - Kidney Biopsy pending [place] [facility] - Consult Nephrology - Hemodialysis 3x/ week --> Last HD on 02/03 at [facility] - Creatinine 2.86 (Baseline 1.1-1.8) -will recheck in AM - Continue Prednisone 40mg PO Daily - Continue Cholecalciferol 1000 Int Units daily - Admit Telemetry Perinephric Hematoma - Daily CBC - Hold Anticoagulation at this time Atrial Fibrillation - Continue Amiodarone 200mg PO Daily and Metoprolol XL 25mg PO Daily - Hold Anticoagulation at this time due to hematoma - EKG - Admit telemetry Right 2nd Finger Osteomyelitis - Orthopaedic Surgery Consult - Aquacel dressing - NPO after midnight anticipating possible amputation today - As per ID from previous admission Keflex x 14 days --> MSSA + Wound culture, Blood Cultures Negative DM - Sliding Scale Insulin with BSG AC and HS - Continue home Januvia and Prandin - Diabetic Diet HTN - Multiple conflicting medications between Cardiology notes, Discharge Summary, and Note from [facility] [place] Discharged patient on Amlodipine 10mg PO Daily and Toprol Xl 25mg - Will continue medications from transfer for time being Parkinson's Disease - Continue home Ropinirole Hypothyroidism - Continue home Synthroid 112 mcg HLD - Continue home Atorvastatin 40mg Depression - Continue home Sertraline Anemia of chronic disease -Patient received IV transfusion -Hemoglobin near 10 after 1 PRBC -Will hold second transfusion. DVT - SCDs Code Status - Full Resuscitation
[2018-03-07] MEDS: ACETAMINOPHEN 325 MG TAB PO PRN (23:16)
[2018-03-08] VITALS (7 sets, daily range): BP systolic 157–184; BP diastolic 66–74; PULSE 83–93; TEMP 36.6–37; O2SAT 95–98
[2018-03-08] MEDS: CEFAZOLIN IV 1,000 MG in SYRINGE 0 ML IV SCH (05:57)
[2018-03-08] MEDS: LEVOTHYROXINE 112 MCG TAB PO SCH (05:57)
--- NOTE | 2018-03-08 08:08 | PROGRESS NOTE ---
DATE: 03/08/2018 SUBJECTIVE: A 77-year-old white female postop day 1 from a right index finger amputation. She is doing well. Denies any pain at all in her hand. OBJECTIVE: VITAL SIGNS: Temperature is 36.6. Stable. EXTREMITIES: Examination of his right hand reveals the dressing to be clean, dry, and intact. No drainage. LABORATORY DATA: Hemoglobin 9.9, hematocrit 29.7. ASSESSMENT: A 77-year-old white female postop day 1 from a right index finger amputation for degenerative arthritis, open wound and infection, doing well. PLAN: Would just like to leave this bandage on for 2 weeks. She can use her hand within the limits of the bandage. I need to see her back in 2 weeks. I do not think there is any need for antibiotics from her hand standpoint. Any orthopedic questions can be directed to me at [phone].
[2018-03-08 09:22] LABS: CALCIUM 8.5 mg/dl (8.5-10.1); CREATININE 1.99 mg/dl (0.60-1.20); POTASSIUM 3.7 mmol/L (3.5-5.1)
[2018-03-08] MEDS: ACETAMINOPHEN 325 MG TAB PO PRN ×2 (09:43→16:26)
[2018-03-08] MEDS: CHOLECALCIFEROL 1000 INTER.UNIT TAB PO SCH (09:43)
[2018-03-08] MEDS: PANTOprazole SOD 40 MG TAB PO SCH (09:43)
[2018-03-08] MEDS: AMLODIPINE BESYLATE 5 MG TAB PO SCH (09:44)
[2018-03-08] MEDS: SITAGLIPTIN 25 MG TAB PO SCH (09:44)
[2018-03-08] MEDS: AMIODARONE 200 MG TAB PO SCH (09:45)
[2018-03-08] MEDS: ATORVASTATIN 40 MG TAB PO SCH (09:45)
[2018-03-08] MEDS: SERTRALINE HCL 50 MG TAB PO SCH (09:47)
[2018-03-08] MEDS: INSULIN ASPART 100 UNITS/ML 3 ML PEN SC SCH ×3 (09:47→17:23)
--- NOTE | 2018-03-08 09:53 | Nephrology Progress Note ---
Nephrology Progress Note Date of Service Mar 08, 2018. Chief Complaint Acute on CKD Subjective Mrs. Vila was seen & examined in the PCU this morning. She was sitting up in a chair this morning eating breakfast. Mrs. Vila reports that she is subjectively improved. She denies fever, dyspnea, hemoptysis or uremic symptoms. She was dialyzed Saturday for 3.5 hours without complication. 3 L UF obtained Review of Systems Constitutional: No fever Cardiovascular: No chest pain Respiratory: No dyspnea at rest Abdomen: No pain, No nausea, No vomiting Extremities: No leg edema Integumentary: No rash A complete review of systems was performed. Pertinent positives are noted above. All other systems are negative. Vital Signs Last 8 Hrs Date Time Temp Pulse Resp B/P (MAP) Pulse Ox O2 Delivery O2 Flow Rate FiO2 03/08/18 08:00 95 Room Air 03/08/18 07:44 36.7 85 20 184/70 (108) 95 Room Air 03/08/18 04:54 36.6 83 20 177/70 (105) 97 Room Air Last Recorded Weight Weight (Kilograms): 61.900 Physical Exam General Appearance: no apparent distress Head: normocephalic, atraumatic Eyes: PERRL, EOMI Neck: no adenopathy Respiratory/Chest: lungs clear, no respiratory distress Cardiovascular: regular rate, rhythm Abdomen/GI: normal bowel sounds, non tender, soft Extremities/Musculoskelatal: no pedal edema, + pertinent finding (R BKA, s/p R index finger amputation) Neurologic/Psych: alert, oriented x 3 Social History Drug Use: none Marital Status: Housing Status: lives with significant other Occupation: disabled Laboratory Results Past 24 Hours 03/07/18 11:43 03/07/18 13:17 03/08/18 08:30 Test 03/07/18 12:11 03/07/18 12:13 03/07/18 12:54 03/07/18 12:57 Bedside Glucose 12 mg/dl (70-90) 32 mg/dl (70-90) 24 mg/dl (70-90) 18 mg/dl (70-90) Test 03/07/18 13:01 03/07/18 13:29 03/07/18 14:35 03/07/18 15:29 Bedside Glucose 23 mg/dl (70-90) 127 mg/dl (70-90) 185 mg/dl (70-90) 136 mg/dl (70-90) Test 03/08/18 08:30 Anion Gap 8.0 mmol/L (3-11) Est Creatinine Clear Calc Drug Dose 21.1 ml/min Estimated GFR () 27.8 Estimated GFR (Non- 24.0 BUN/Creatinine Ratio 7.3 (10-20) Calcium Level 8.5 mg/dl (8.5-10.1) Allergies Coded Allergies: No Known Allergies (Unverified , 02/20/18) Medications Current Inpatient Medications Medications (Trade) Dose Ordered Sig/Frank Route Start Time Stop Time Status Last Admin Dose Admin Acetaminophen (Tylenol Tab) 650 mg Q4H PRN PO 03/06/18 21:45 04/05/18 21:44 03/07/18 23:16 650 MG Atorvastatin Calcium (Lipitor Tab) 40 mg DAILY PO 03/07/18 09:00 04/06/18 08:59 03/07/18 07:45 40 MG Levothyroxine Sodium (Synthroid Tab) 112 mcg DAILYBB PO 03/07/18 06:00 04/06/18 05:59 03/08/18 05:57 112 MCG Pantoprazole Sodium (Protonix Tab) 40 mg BID PO 03/07/18 09:00 04/06/18 08:59 03/07/18 21:22 40 MG Repaglinide (Prandin Tab) 2 mg AC PO 03/07/18 07:00 04/06/18 06:59 Future Hold 03/07/18 05:38 2 MG Ropinirole HCl (Requip Tab) 1 mg HS PO 03/06/18 23:00 04/05/18 22:59 03/07/18 21:22 1 MG Sertraline HCl (Zoloft Tab) 50 mg DAILY PO 03/07/18 09:00 04/06/18 08:59 03/07/18 07:46 50 MG Sitagliptin Phosphate (Januvia Tab) 25 mg DAILY PO 03/07/18 09:00 04/06/18 08:59 03/07/18 07:46 25 MG Amiodarone HCl (Cordarone Tab) 200 mg QAM PO 03/07/18 09:00 04/06/18 08:59 03/07/18 07:46 200 MG Amlodipine Besylate (Norvasc Tab) 10 mg DAILY PO 03/07/18 09:00 04/06/18 08:59 03/07/18 07:47 10 MG Prednisone (PredniSONE TAB) 40 mg DAILY PO 03/07/18 09:00 04/06/18 08:59 03/07/18 07:47 40 MG Cholecalciferol (Vitamin D Tab) 1,000 inter.unit QAM PO 03/07/18 09:00 04/06/18 08:59 03/07/18 07:46 1,000 INTER.UNIT Insulin Aspart (novoLOG ASPART) SLIDING SCALE G... ACHS SC 03/06/18 23:00 04/05/18 22:59 03/07/18 21:24 4 UNITS Glucose (Glucose 40% Gel) 15-30 GRAMS 15 GRAMS... UD PRN PO 03/06/18 22:30 04/05/18 22:29 Glucose (Glucose Chew Tab) 4-8 Tablets 4 Tabl... UD PRN PO 03/06/18 22:30 04/05/18 22:29 Dextrose (Dextrose 50% 50ML Syringe) 25-50ML 25ML FOR ... UD PRN IV 03/06/18 22:30 04/05/18 22:29 03/07/18 12:38 50 ML Glucagon (Glucagon Inj) 1 mg UD PRN IM 03/06/18 22:30 04/05/18 22:29 Carbohydrates (Carbohydrates For Hypoglycemia) 15-30 GRAMS 15 grams if BSG 54-69... UD PRN PO 03/06/18 22:30 04/05/18 22:29 Impression (1) HAO (acute kidney injury) (2) Perinephric hematoma (3) Osteomyelitis of finger of right hand (4) Hypertension (5) Atrial fibrillation Ms. Vila is a 77-year-old female with HTN, OA, ASCVD (CABG '00) and CKD w/ baseline creatinine 1.1 - 1.8. She presented to [facility] with soft tissue infection and possible osteomyelitis of the DIP joint R index finger. Cultures from the joint aspirate grew MSSA. She received antibiotic therapy but ultimately required amputation of the R index finger 03/07/18 HAO developed in setting of infection. Renal ultrasound documented symmetric bilateral cortical atrophy (8cm kidneys) but no obstruction. Renal duplex did not demonstrate significant renovascular disease. The patient developed new multifocal airspace disease/pneumonia. She was transferred to [facility] with worsening kidney function and respiratory status with need for dialysis. Tunneled dialysis catheter was placed and patient was started on HD on February 21. Urine microscopy revealed hematuria and pyuria. ESR significantly elevated. Serologic testing is notable for +MER, low C3 and equivocal serum immunofixation and UPEP. Clinical presentation is suggestive of ATN complicated by antibiotics including vancomycin and Bactrim. However, acute GN remains a significant concern. Clinical presentation may be consistent with staph associated immune complex mediated GN or other C3 glomerulopathy. Blood cultures have been negative and TTE did not demonstrate vegetations to suggest IE. ANCA is negative. AIN also possible notable given multiple recent antibiotics including Bactrim and Keflex. Urine eosinophil testing was negative. Patient underwent [place] kidney biopsy at [facility] [place] 03/04/18. Hospital course was complicated by new atrial fibrillation. The patient has been converted to NSR with amiodarone. She is on anticoagulation therapy Recommendations HAO: -- Patient dialyzed yesterday for 3.5 hours w/ 3 L UF. There were no complications. -- Volume status & electrolyte balance are acceptable at this time. Will monitor kidney function and UO over weekend -- Patient was MER + with low C3. Awaiting nulato kidney biopsy results -- Continue Prednisone 40 mg daily -- social and human services assistant has been consulted to arrange outpatient HD at [facility] w/ Dr. [place] upon discharge Perinephric hematoma: -- Anticoagulation held for 1 week HYPONATREMIA: -- 1500 ml daily fluid restriction ANEMIA: -- EPO will be provided with HD HTN: -- Continue Amlodipine and Metoprolol -- Avoid YONATAN/ARB option given HAO Osteomyelitis: -- Amputation R index finger completed 03/09/18
[2018-03-08] MEDS ORDERED: NRV5 PO (14:42)
[2018-03-08] MEDS ORDERED: PRD20 PO (14:42)
[2018-03-08] MEDS ORDERED: VTMD1000 PO (14:42)
[2018-03-08] MEDS ORDERED: CRD200 PO (14:42)
--- NOTE | 2018-03-08 14:58 | Discharge Instructions ---
Discharge Instructions Date of Service Mar 08, 2018. Admission Reason for Admission: Acute Renal Failure, Osteomyelitis Discharge Discharge Diagnosis / Problem: Acute renal failure, Osteomyelitis Discharge Goals Goal(s): Decrease discomfort, Improve function Activity Recommendations Activity Limitations: resume your previous activity . Instructions / Follow-Up Instructions / Follow-Up Nephrology Dialysis M,W,F Follow up with Nephrology within 1 month Followup with PCP within 1-2 weeks Current Hospital Diet Patient's current hospital diet: Diabetes Type 2 Diet Discharge Diet Recommended Diet: Diabetes Type 2 Diet Procedures Procedures Performed: Right Index Finger Amputation Pending Studies Studies pending at discharge: no Laboratory Results Hemoglobin A1c Test 02/21/18 04:26 Range/Units Estimated Average Glucose 143 mg/dl Hemoglobin A1c 6.6 H 4.5-5.6 % Medical Emergencies . Who to Call and When: Medical Emergencies: If at any time you feel your situation is an emergency, please call 911 immediately. . Non-Emergent Contact Non-Emergency issues call your: Primary Care Provider Call Non-Emergent contact if: you have any medication questions . . "Provider Documentation" section prepared by Jason Rico. .
--- NOTE | 2018-03-16 22:33 | Discharge Summary ---
Discharge Summary Date of Service Mar 08, 2018. Discharge Summary Admission Date: Mar 06, 2018 at 19:47 Discharge Date: Mar 08, 2018 Discharge Disposition: assisted facility Principal Diagnosis: Osteomyelitis of Right second finger Consultations: Nephro Recommendations. HAO: -- Patient dialyzed yesterday for 3.5 hours w/ 3 L UF. There were no complications. -- Volume status & electrolyte balance are acceptable at this time. Will monitor kidney function and UO over weekend -- Patient was MER + with low C3. 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 [place] upon discharge Perinephric hematoma: -- Anticoagulation held for 1 week HYPONATREMIA: -- 1500 ml daily fluid restriction ANEMIA: -- EPO will be provided with HD HTN: -- Continue Amlodipine and Metoprolol -- Avoid YONATAN/ARB option given HAO Medication Reconciliation New Medications: Amiodarone HCl (Amiodarone HCl) 200 Mg Tab 200 MG PO QAM for 30 Days, #30 TAB Amlodipine Besylate (Amlodipine Besylate) 5 Mg Tab 10 MG PO DAILY for 30 Days, #60 TAB Cholecalciferol (Vitamin D3) 1,000 Inter.unit Tab 1000 INTER.UNIT PO QAM for 30 Days, #30 TAB Prednisone (Prednisone) 20 Mg Tab 40 MG PO DAILY for 30 Days, #60 TAB Continued Medications: Atorvastatin (Lipitor) 40 Mg Tab 40 MG PO DAILY, TAB Levothyroxine Sodium (Levothyroxine Sodium) 112 Mcg Tab 1 TAB PO DAILY for 30 Days, #30 TAB 5 Refills Pantoprazole (Protonix) 40 Mg Tab 40 MG PO BID, #30 TAB Repaglinide (Prandin) 2 Mg Tab 2 MG PO AC, TAB Ropinirole (Requip) 1 Mg Tab 1 MG PO HS, TAB Sertraline (Zoloft) 50 Mg Tab 50 MG PO DAILY, TAB Sitagliptin (Januvia) 25 Mg Tab 25 MG PO DAILY, TAB Discontinued Medications: Allopurinol (Zyloprim) 100 Mg Tab 1 TAB PO DAILY for 30 Days, #30 TAB 5 Refills Amlodipine (Norvasc) 5 Mg Tab 5 MG PO DAILY, TAB Aspirin (Aspirin Ec) 81 Mg Tab 81 MG PO DAILY Atenolol (Tenormin) 100 Mg Tab 100 MG PO DAILY, TAB Cephalexin Monohydrate (Keflex) 500 Mg Cap 500 MG PO QID, CAP Desipramine HCl (Desipramine HCl) 25 Mg Tab PO HS Hydrochlorothiazide (Hctz) 25 Mg Tab 1 TAB PO DAILY for 30 Days, #30 TAB 5 Refills Lisinopril (Prinivil) 10 Mg Tab 10 MG PO DAILY, TAB Sulfa/Trimethoprim (Bactrim Ds 800MG/160MG) Tab 1 TAB PO BID, #6 TAB Discharge Exam Review of Systems Constitutional: No fever Eyes: No worsening of vision ENT: No hearing loss Respiratory: No cough Cardiac: No chest pain Endo: No fatigue Skin: No rash All Other Systems: Reviewed and Negative Physical Exam Comments: General Appearance: WD/WN, no apparent distress Head: normocephalic, atraumatic Eyes: normal inspection, sclerae normal Neck: supple, no carotid bruits, trachea midline Respiratory/Chest: chest non-tender, lungs clear, normal breath sounds, + pertinent finding (Permcath placement C/D/I) Cardiovascular: no gallop, no murmur, + irregularly irregular Abdomen/GI: normal bowel sounds, non tender, soft Extremities/Musculoskelatal: no calf tenderness, no pedal edema, + pertinent finding (Hand is wrapped, SP amputation of right 2 digit) Neurologic/Psych: alert, normal reflexes, oriented x 3 Hospital Course The patient is a 77 year old female with a past medical history of HTN, OA, CAD (history of CABG in ) who is being transferred from [facility] after a renal biopsy performed on 03/05 Acute Renal Failure - Possibly in the setting of ATN 2/2 IV Antibiotics or Staph related autoimmune kidney injury - Kidney Biopsy pending from [facility] - Consult Nephrology - Hemodialysis 3x/ week --> Last HD on 02/03 at [facility] [place] - Creatinine 2.86 (Baseline 1.1-1.8) -will recheck in AM - Continue Prednisone 40mg PO Daily - Continue Cholecalciferol 1000 Int Units daily -Patient ok for discharge Perinephric Hematoma - Daily CBC - Hold Anticoagulation for 1 week -This was a complication from biopsy done at [place] Atrial Fibrillation - Continue Amiodarone 200mg PO Daily and Metoprolol XL 25mg PO Daily - Hold Anticoagulation at this time due to hematoma - EKG Right 2nd Finger Osteomyelitis S/P amputation - Orthopaedic Surgery Consult - Aquacel dressing -No need for further antibiotics as an outpatient DM - Sliding Scale Insulin with BSG AC and HS - Continue home Januvia and Prandin - Diabetic Diet HTN - Multiple conflicting medications between Cardiology notes, Discharge Summary, and Note from [facility] [place] Discharged patient on Amlodipine 10mg PO Daily and Toprol Xl 25mg - Will continue medications from transfer for time being Parkinson's Disease - Continue home Ropinirole Hypothyroidism - Continue home Synthroid 112 mcg HLD - Continue home Atorvastatin 40mg Depression - Continue home Sertraline Anemia of chronic disease -Patient received 1 unit of PRBC -Hemoglobin near 10 after 1 PRBC -CBC stable. DVT - SCDs Code Status - Full Resuscitation Total Time Spent: Greater than 30 minutes This includes examination of the patient, discharge planning, medication reconciliation, and communication with other providers. Discharge Instructions Please refer to the electronic Patient Visit Report (Discharge Instructions) for additional information. Follow-Up Nephrology Dialysis M,W,F Follow up with Nephrology within 1 month Followup with PCP within 1-2 weeks Keep dressing clean, dry, and in place until return to orthopedic clinic. for removal Schedule return to clinic appointment 2-3 weeks from the surgery date. Additional Copies To Anne Stevenson D.O.
== END 2018-03-08 17:52 | DRG 988 ==
LOC: C.2T 19:47
PROVIDERS: ADMIT Internal Medicine Sports Medicine; ATTEND Internal Medicine Sports Medicine
PROC: 0X6N0Z3 Detachment at Right Index Finger, Low, Open Approach (ICD-10-PCS; principal; 2018-03-07 13:00)
DX: E11.69 Type 2 diabetes mellitus with other specified complication (principal); N99.840 Postprocedural hematoma of a genitourinary system organ or structure following a genitourinary system procedure; M86.8X4 Other osteomyelitis, hand; M87.044 Idiopathic aseptic necrosis of right finger(s); T45.515A Adverse effect of anticoagulants, initial encounter; D68.32 Hemorrhagic disorder due to extrinsic circulating anticoagulants; E87.1 Hypo-osmolality and hyponatremia; I12.9 Hypertensive chronic kidney disease with stage 1 through stage 4 chronic kidney disease, or unspecified chronic kidney disease; M19.90 Unspecified osteoarthritis, unspecified site; I25.10 Atherosclerotic heart disease of native coronary artery without angina pectoris; N17.0 Acute kidney failure with tubular necrosis; Z95.1 Presence of aortocoronary bypass graft; I48.91 Unspecified atrial fibrillation; Z87.891 Personal history of nicotine dependence; E03.9 Hypothyroidism, unspecified; D64.9 Anemia, unspecified; E78.5 Hyperlipidemia, unspecified; G20 Parkinson's disease; N18.3 Chronic kidney disease, stage 3 (moderate); Y92.019 Unspecified place in single-family (private) house as the place of occurrence of the external cause; L40.52 Psoriatic arthritis mutilans; Y83.8 Other surgical procedures as the cause of abnormal reaction of the patient, or of later complication, without mention of misadventure at the time of the procedure; Y92.239 Unspecified place in hospital as the place of occurrence of the external cause